=== PATIENT | male | born 1970 | race Two or more races ===

== ENCOUNTER 2019-07-19 09:10 | Emergency (ER) | payer OTHER ==
[~2019-07-19] VITALS: Ht 152.4 cm; Wt 73.0 kg
--- NOTE | 2019-07-19 10:12 | RAD ---
EXAM: CHEST ONE VIEW. HISTORY: Cough, shortness of breath. COMPARISON: 08/13/2014. FINDINGS: A frontal view of the chest is obtained. There are mild airspace opacities in the left upper lobe and left costophrenic angle. Another is suspected in the right upper lobe. There is no pneumothorax or pleural effusion. The heart is not enlarged. IMPRESSION: 1. Mild airspace patchy infiltrates consistent with atypical pneumonia. Electronically signed by: Loyda Hernández MD (07/19/2019 10:09 AM) [id number]
[2019-07-19 10:30] VITALS: BP 130/84
[2019-07-19] MEDS ORDERED: AZIT250T PO (10:32)
--- NOTE | 2019-07-19 10:32 | PHYS DOC ---
Past Medical History Past Medical History: No Pertinent History, TB Additional Past Medical Histor: currently being treated for TB Past Surgical History: No Surgical History Smoking Status: Current Every Day Smoker Alcohol Use: None Drug Use: None General Adult EDM: Chief Complaint: COUGH HPI: HPI: Patient is a 49 year old male presented to the ER with nonproductive cough for 1 week. Patient denied any fever, no shortness of air, no chest pain. Patient denied any recent travel anywhere, no known exposure to people who was tested positive for COVID-19. Patient tried to g back to work today and his employer told him to see a doctor first. Patient said he actually felt much better today. Patient denied any history of diabetic, no HTN, no hx of CAD. Review of Systems: Review of Systems: Constitutional: Denies fever or chills. [] Eyes: Denies change in visual acuity. [] HENT: Denies nasal congestion or sore throat. [] Respiratory: Positive for cough, NO shortness of breath. [] Cardiovascular: Denies chest pain or edema. [] GI: Denies abdominal pain, nausea, vomiting, bloody stools or diarrhea. [] : Denies dysuria. [] Musculoskeletal: Denies back pain or joint pain. [] Integument: Denies rash. [] Neurologic: Denies headache, focal weakness or sensory changes. [] Endocrine: Denies polyuria or polydipsia. [] Lymphatic: Denies swollen glands. [] Psychiatric: Denies depression or anxiety. [] Heart Score: Risk Factors: Risk Factors: DM, Current or recent (<one month) smoker, HTN, HLP, family history of CAD, obesity. Risk Scores: Score 0 - 3: 2.5% MACE over next 6 weeks - Discharge Home Score 4 - 6: 20.3% MACE over next 6 weeks - Admit for Clinical Observation Score 7 - 10: 72.7% MACE over next 6 weeks - Early Invasive Strategies Physical Exam: PE: Constitutional: Well developed, well nourished, no acute distress, non-toxic appearance. [] HENT: Normocephalic, atraumatic, bilateral external ears normal, oropharynx moist, no oral exudates, nose normal. [] Eyes: PERRLA, EOMI, conjunctiva normal, no discharge. [] Neck: Normal range of motion, no tenderness, supple, no stridor. [] Cardiovascular:Heart rate regular rhythm, no murmur [] Lungs & Thorax: Bilateral breath sounds clear to auscultation [] Abdomen: Bowel sounds normal, soft, no tenderness, no masses, no pulsatile masses. [] Skin: Warm, dry, no erythema, no rash. [] Back: No tenderness, no CVA tenderness. [] Extremities: No tenderness, no cyanosis, no clubbing, ROM intact, no edema. [] Neurologic: Alert and oriented X 3, normal motor function, normal sensory function, no focal deficits noted. [] Psychologic: Affect normal, judgement normal, mood normal. [] Current Patient Data: Vital Signs: Vital Signs Date Time Temp Pulse Resp B/P (MAP) Pulse Ox O2 Delivery O2 Flow Rate FiO2 07/19/19 09:15 98.4 62 16 157/85 (109) 99 Room Air 98.4 EKG: EKG: [] Radiology/Procedures: Radiology/Procedures: [][facility] [address] [place] [address] IMAGING REPORT Signed PATIENT: DAVID REMY ACCOUNT: [id number] : 1970 LOCATION: ER AGE: 49 SEX: M EXAM STATUS: REG ER ORD. PHYSICIAN: ELTON BRIDGES DO REASON: COUGH, SOA FOR A WEEK PROCEDURE: CHEST AP ONLY EXAM: CHEST ONE VIEW. HISTORY: Cough, shortness of breath. COMPARISON: 08/13/2014. FINDINGS: A frontal view of the chest is obtained. There are mild airspace opacities in the left upper lobe and left costophrenic angle. Another is suspected in the right upper lobe. There is no pneumothorax or pleural effusion. The heart is not enlarged. IMPRESSION: 1. Mild airspace patchy infiltrates consistent with atypical pneumonia. Electronically signed by: Loyda Hernández MD (07/19/2019 10:09 AM) [id number] DICTATED and SIGNED BY: YNES HERNÁNDEZ MD DATE: 07/19/19 1009 Course & Med Decision Making: Course & Med Decision Making COVID-19 CRITERIA: The patient was evaluated during the global COVID-19 pa ndemic, and that diagnosis was suspected/considered upon their initial presentation. Their evaluation, treatment and testing was consistent with current guidelines for patients who present with complaints or symptoms that may be related to COVID-19. Pertinent Labs and Imaging studies reviewed. (See chart for details) [] Dragon Disclaimer: Dragon Disclaimer: This electronic medical record was generated, in whole or in part, using a voice recognition dictation system. Departure Departure Impression: Primary Impression: Pneumonia Disposition: 01 HOME, SELF-CARE Condition: STABLE Referrals: BIRGIT HEDRICK MD (PCP) please follow up with your doctor next week for reevaluation Patient Instructions: Pneumonia, Adult Additional Instructions: Thank you for visiting our Emergency Department. We appreciate you trusting us with your care. If any additional problems come up don't hesitate to return to visit us. Please follow up with your primary care provider so they can plan additional care if needed and know about the problem that you had. If symptoms worsen come back to the Emergency Department. Any concerning symptoms that start such as chest pain, shortness of air, weakness or numbness on one side of the body, running high fevers or any other concerning symptoms return to the ER. Scripts Azithromycin (ZITHROMAX) 250 Mg Tablet 1 PKG PO UD, #6 TAB Prov: ELTON BRIDGES DO 07/19/19 COVID-19 Assessment: COVID-19 Patient Risks: Age 65 or older: No Sign of co-morbidity: No Exp to person + for COVID: No Exp to PUI: No Travel from affected area: No Lower respiratory symptoms: Yes Fever: No Other: No PPE Use: Full PPE with N95 mask or PAPR: Yes (N95 MASK WITH FULL PPE) ELTON BRIDGES DO Jul 19, 2019 10:32
== END 2019-07-19 10:40 | disposition home or self-care (01) ==
LOC: ER 09:10
DX: J18.9 Pneumonia, unspecified organism (principal); F17.200 Nicotine dependence, unspecified, uncomplicated
CPT/HCPCS: 71045; 99283